=== PATIENT | female | born 2000 | race Caucasian/White ===

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

== ENCOUNTER → 2018-01-17 | Outpatient (CLI) | payer OTHER | LOC: M WUC 12:54 | DX: S90.32XA Contusion of left foot, initial encounter (principal); X58.XXXA Exposure to other specified factors, initial encounter; Y92.9 Unspecified place or not applicable | CPT/HCPCS: 73620 ==

== ENCOUNTER → 2018-02-14 | Outpatient (REF) | payer OTHER ==
[2018-02-18 09:24] LABS: HERPES ZOSTER, VARICELLA IgG 439 index (Immune >165)
== END ==
LOC: M LAB REF 16:26
DX: Z00.00 Encounter for general adult medical examination without abnormal findings (principal)

== ENCOUNTER → 2019-03-03 | Outpatient (CLI) | payer OTHER ==
--- NOTE | 2019-03-03 19:19 | REP ---
Clinical: Right foot pain Technique: AP, lateral, bilateral oblique views right foot . Findings: The osseous structures and joint spaces are intact and normal. There is no evidence for acute fracture or dislocation. Surrounding soft tissues are unremarkable. No subcutaneous emphysema or radiodense foreign body. Impression: Normal right foot series . No acute fracture or dislocation. Electronically Signed by Frandy Barragan MD 03/03/2019 07:11 P
== END ==
LOC: M WUC 18:53
PROVIDERS: ATTEND Physician Assistant
DX: M79.671 Pain in right foot (principal)